=== PATIENT | female | born 1980 ===

== ENCOUNTER 2017-04-09 01:42 | Inpatient (IN) ==
[2017-04-09] MEDS: LACTATED RINGERS 1,000 ML IV SCH ×4 (02:20→22:40)
[2017-04-09] MEDS ORDERED: FAMOTIDINE 20 MG/2 ML VIAL IV ONE (02:45)
[2017-04-09] MEDS ORDERED: CITRIC ACID/SODIUM CITRATE 30 ML UDCUP PO ONE (02:45)
[2017-04-09 04:04] LABS: Basophils % 0.2 % (0.0-0.8); Eosinophils % 0.7 % (0.00-10.9); Hematocrit 30.7 VOL% (35.7-47.0); Hemoglobin 9.9 GM/DL (12.0-16.0); Immature Granulocytes % 0.5 %; Immature Granulocytes Absolute 0.02 #; Lymphocytes # 0.8 10*3/uL (1.4-4.0); Lymphocytes % 18.7 % (21.3-54.2); Mean Corpuscular HGB Conc 32.2 GM/DL (32-36); Mean Corpuscular Hemoglobin 26 PG (27-34); Mean Corpuscular Volume 79.9 FL (87-102); Mean Platelet Volume 13.2 FL (9.6-12.0); Monocytes # 0.3 10*3/uL (0.11-0.8); Monocytes % 6.3 % (1.7-12.7); Neutrophils % 73.6 % (38.7-73.9); Platelet Count 113 T/CUMM (130-400); Red Blood Count 3.84 MC/CUMM (3.8-5.5); Red Cell Distribution Width 15.6 % (9.3-17.3); White Blood Count 4.1 T/CUMM (4-12)
[2017-04-09 04:36] LABS: Albumin 2.2 G/DL (3.4-5.0); Bilirubin,Total 0.5 MG/DL (0.2-1.0); Calcium 7.8 MG/DL (8.5-10.1); Potassium 3.9 MMOL/L (3.5-5.1); Total Protein 6.1 G/DL (6.4-8.3)
[2017-04-09] MEDS ORDERED: DEXTROSE 5% LACTATED RINGERS 1,000 ML IV SCH (05:00)
[2017-04-09] MEDS ORDERED: MEPERIDINE 25 MG/1 ML VIAL IV ONE (06:45)
[2017-04-09] MEDS ORDERED: ONDANSETRON 4 MG/2 ML VIAL IV ONE (06:45)
[2017-04-09] MEDS ORDERED: OXYTOCIN 10 UNIT/ML VIAL ONE (07:53)
[2017-04-09] MEDS ORDERED: ceFAZolin 2,000 MG in SODIUM CHLORIDE 0.9% 100 ML IV ONE (08:00)
[2017-04-09] MEDS ORDERED: OXYTOCIN/LR 30 UNIT/1,000 ML BAG IV ONE (08:00)
[2017-04-09 08:25] LABS: Apearance,Urine CLEAR (Clear); Bilirubin,Urine Negative (Negative); Blood, Urine Negative (Negative); Glucose,Urine (UA) Negative (Negative); Ketones,Urine 5 mg/dL (Negative); Mucus,Urine Occasional /LPF (Occasional); Nitrite,Urine Negative (Negative); Protein,Urine Negative; RBC,Urine 2 /HPF (0-4); Squamous Epithelial Cell,Urine Occasional /HPF (0-10); Urine Color Amber (Yellow); Urine Specific Gravity 1.026 (1.001-1.035); WBC,Urine 1 /HPF (0-6)
--- NOTE | 2017-04-09 11:14 | OB/GYN History & Physical ---
History of Present Illness Chief complaint: 39 weeks and 2 days, early labor, previous C6 History of present illness: Ms. Cabrera is a 37 year old female 37-year-old multiparous patient who presents for repeat section. Patient has a previous history of help syndrome but this patient was complicated by late care. We will plan on a repeat section and bilateral tubal ligation. Risks benefits are discussed she is in full agreement. heart tones were well documented in category 1 Home Medications Medication Instructions Recorded Confirmed Type Multivitamin () [ 1 tablet PO DAILY MDD one tab 02/21/16 History Vitamin] Allergies Allergy/AdvReac Type Severity Reaction Status Date / Time No Known Allergies Allergy Verified 02/21/16 22:07 Medical,Surgical,& Family Hx - Medical History Cardio: History of: Hypertension Reproductive: History of: Complication ( deliveries) No history of: Ectopic - Surgical History Reproductive Surgeries: Surgical HX of;: Section (times 3) Patient denies;: Hysterectomy, Tubal Ligation - Family History Family History: Reports;: Family Diabetes (mgm, pgm), Family Heart Disease (mgm) , Family Hypertension (MOTHER), Family Psychiatric Problems (brothers schizophrenia), Family Stroke (MGM) Denies;: Family Anesthesia Reaction, Family Cancer, Family Hematology, Additional Family History - Social History Smoking Status: Never smoker Frequency of Alcohol Use: None Type of Drug Use: None 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[employer]ER - Constitutional Vitals: Vital Signs Temp Pulse Resp BP 04/09/17 08:00 97.1 F L 57 L 19 150/57 04/09/17 04:00 97 F L 60 16 120/74 General appearance: no acute distress, mild distress - Antepartum / Post Antepartum Exam Cervix - Dilatation: 1-2 cm - Head Head exam: Present: normal inspection - Eye Eye exam: Present: EOMI Pupils: Present: BHAVANA - ENT ENT exam: Present: normal exam - Neck Neck exam: Present: normal inspection - Respiratory Respiratory exam: Present: clear to auscultation bilaterally - Breast Breasts: as per HPI Menstruation: as per HPI - Cardiovascular Cardiovascular exam: Present: regular rate and rhythm - GI/Abdominal GI/Abdominal exam: Present: normal bowel sounds, other ( heart tones, well- healed vertical scar, palpable contraction) - Extremities Exam Extremities exam: Present: normal inspection - Back Exam Back exam: Present: normal inspection - Neurological Exam Neurological exam: Present: alert, oriented X3 - Psychiatric Psychiatric exam: Present: normal affect - Skin Skin exam: Present: normal color Assessment and Plan (1) Previous section Status: Acute Assessment and plan: Repeat section and elective sterilization, pre-risks and benefits were thoroughly discussed she is in full agreement Current Visit: No Results - Labs CBC & BMP: 04/09/17 03:30 04/09/17 03:30
[2017-04-09 11:53] LABS: Cord Arterial Blood HCO3 18.4 MMOL/L; Cord Venous Blood HCO3 19.6 MMOL/L; Cord Venous Blood PO2 28.6 MMHG
--- NOTE | 2017-04-09 12:07 | Anesthesia Post-Op ---
Anesthesia Post OP - Post Ansesthetic Evaluation Patient seen in post op: Yes Resp: within normal limits CV: within normal limits Mental: within normal limits Temp: within normal limits [id number]: within normal limits Nausea and Vomiting: within normal limits Pain: within normal limits
[2017-04-09] MEDS ORDERED: fentaNYL 100 MCG/2 ML VIAL ONE (12:08)
[2017-04-09] MEDS ORDERED: MORPHINE 10 MG/10 ML VIAL ONE (12:09)
--- NOTE | 2017-04-09 12:21 | Operative Note ---
Date of procedure: 04/09/17 Procedure: Preoperative diagnosis: 39 weeks and 2 days, repeat section, elective sterilization Postoperative diagnosis: Same Anesthesia:[] Regional anesthesia Estimated blood loss: [] 300 cc Surgeon: Dr. Martinez Findings: [] Multiple pelvic adhesions, the fascia was disrupted before entering the abdominal cavity, delivery time was 1127, Apgars was 9 at 1 minute 9 at 5 minutes, weight was 7 pounds and 9 ounces Complications: None Procedure: Low transverse section and bilateral tubal ligation The patient was taken to the operating suite heart tones were obtained prior to and after regional anesthesia was obtained. She was placed in supine position her abdomen was prepped and draped in usual manner for major abdominal surgery. Through an abdominal incision the skin, subcutaneous, fascial layer the fascial layer was already opened prior to making an incision. There was no protrusion of bowel or omentum through this opening. And peritoneal the abdomen was entered. The bladder flap was created and a low transverse incision was made.. Fluid was clear and normal amount X, Apgars, the placenta was delivered and sent to lab for further evaluation. Injected with intrauterine Pitocin. The first layer of the uterus was closed with #1 Vicryl in a continuous locking manner. Close to imbricate the first layer with #1 Vicryl. The peritoneum was approximated with #2-0 Vicryl.[Fallopian tubes were grasped with a Archie clamp on the right side is mesosalpinx was perforated proximal distal end of the tube was ligated segment in between was excised. There was an absent right tube and ovary on the left side. All the last sponges and instruments were accounted for -2.) #2-0 Vicryl. Fascia was approximated with #0-0 Maxon.. The skin was approximated with ton. She tolerated procedure well and was taken to recovery room in stable condition. Surgeon / Physician: Katty Martinez Results - Labs CBC & BMP: 04/09/17 03:30 04/09/17 03:30 Discharge Plan - Discharge Medications No Action Multivitamin () [ Vitamin] 1 tablet PO DAILY MDD one tab - Follow Up or Referral - Forms/Instructions
[2017-04-09] MEDS ORDERED: SIMETHICONE CHEW 80 MG TABLET PO PRN (12:22)
[2017-04-09] MEDS ORDERED: OXYTOCIN/LR 20 UNIT/1,000 ML BAG IV ONE (12:22)
[2017-04-09] MEDS ORDERED: ACETAMINOPHEN 325 MG TABLET PO PRN (12:22)
[2017-04-09] MEDS ORDERED: ONDANSETRON 4 MG/2 ML VIAL IV PRN (12:22)
[2017-04-09] MEDS ORDERED: RHO(D) IMMUNE GLOBULIN 300 MCG SYRINGE IM ONE (12:22)
[2017-04-09] MEDS ORDERED: MAGNESIUM HYDROXIDE SUSP 30 ML UDCUP PO PRN (12:22)
[2017-04-09] MEDS ORDERED: HYDROmorphone 2 MG/1 ML VIAL ONE (13:35)
[2017-04-09] MEDS: HYDROmorphone 2 MG/1 ML VIAL IV PRN ×2 (13:40→16:05)
[2017-04-09 20:14] LABS: Eosinophils % 0.1 % (0.00-10.9); Hematocrit 27.8 VOL% (35.7-47.0); Hemoglobin 8.9 GM/DL (12.0-16.0); Immature Granulocytes % 0.5 %; Immature Granulocytes Absolute 0.04 #; Lymphocytes # 0.5 10*3/uL (1.4-4.0); Lymphocytes % 7.1 % (21.3-54.2); Mean Corpuscular Hemoglobin 26 PG (27-34); Mean Corpuscular Volume 81.8 FL (87-102); Mean Platelet Volume 13.4 FL (9.6-12.0); Monocytes # 0.2 10*3/uL (0.11-0.8); Monocytes % 3.3 % (1.7-12.7); Neutrophils # 6.5 10*3/uL (1.4-7.4); Platelet Count 103 T/CUMM (130-400); Red Cell Distribution Width 15.4 % (9.3-17.3); White Blood Count 7.3 T/CUMM (4-12)
[2017-04-09] MEDS: FERROUS SULFATE 325 MG TABLET PO SCH (21:12)
[2017-04-09] MEDS: DOCUSATE SODIUM 100 MG CAPSULE PO SCH (21:12)
[2017-04-09] MEDS ORDERED: PROMETHAZINE 25 MG/1 ML VIAL IM PRN (21:15)
[2017-04-10 06:10] LABS: Basophils % 0.2 % (0.0-0.8); Hematocrit 24.2 VOL% (35.7-47.0); Immature Granulocytes % 0.4 %; Immature Granulocytes Absolute 0.02 #; Lymphocytes # 0.9 10*3/uL (1.4-4.0); Mean Corpuscular HGB Conc 31.8 GM/DL (32-36); Mean Corpuscular Hemoglobin 26 PG (27-34); Mean Corpuscular Volume 80.4 FL (87-102); Mean Platelet Volume 13.3 FL (9.6-12.0); Monocytes # 0.4 10*3/uL (0.11-0.8); Monocytes % 7.7 % (1.7-12.7); Neutrophils # 4.3 10*3/uL (1.4-7.4); Neutrophils % 75.7 % (38.7-73.9); Red Blood Count 3.01 MC/CUMM (3.8-5.5); Red Cell Distribution Width 15.4 % (9.3-17.3); White Blood Count 5.6 T/CUMM (4-12)
[2017-04-10] MEDS: LACTATED RINGERS 1,000 ML IV SCH (06:18)
[2017-04-10 06:23] LABS: Hemoglobin 7.7 GM/DL (12.0-16.0); Platelet Count 98 T/CUMM (130-400)
[2017-04-10] MEDS ORDERED: SODIUM CHLORIDE 0.9% 250 ML IV PRN ×2 (06:37→14:56)
[2017-04-10 06:38] LABS: Hypochromasia 1+
[2017-04-10] MEDS: DOCUSATE SODIUM 100 MG CAPSULE PO SCH ×2 (08:58→21:03)
[2017-04-10] MEDS: FERROUS SULFATE 325 MG TABLET PO SCH ×2 (08:58→21:03)
[2017-04-10] MEDS: MULTIVITAMIN (PRENATAL) TABLET PO SCH (12:51)
[2017-04-10] MEDS: IBUPROFEN 800 MG TABLET PO PRN ×2 (14:38→23:15)
--- NOTE | 2017-04-10 14:56 | OB/GYN Progress Note ---
Assessment and Plan (1) Previous section Status: Acute Current Visit: Yes (2) Status post repeat low transverse section Status: Acute Assessment and plan: Initiate routine postop orders. 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 Bonding well with infant. Exam CALL OR CONTACT CENTRE TEAM LEADER - Constitutional Vitals: Vital Signs Temp Pulse Pulse Resp BP BP Pulse Ox 04/10/17 13:52 97.7 F 71 18 112/72 99 04/10/17 12:09 97.9 F 74 20 116/74 98 04/10/17 12:00 97.9 F 74 20 116/74 04/10/17 11:09 97.8 F 75 18 120/71 98 04/10/17 10:39 97.9 F 77 18 128/77 98 04/10/17 10:34 97.8 F 73 18 118/75 98 04/10/17 10:29 97.8 F 73 18 114/60 98 04/10/17 10:22 97.8 F 74 18 125/79 97 04/10/17 09:33 97.8 F 73 18 113/67 98 04/10/17 08:33 97.9 F 71 18 111/61 98 04/10/17 08:03 97.8 F 71 18 110/62 98 04/10/17 07:58 97.7 F 71 18 114/65 98 04/10/17 07:53 97.8 F 72 18 112/68 98 04/10/17 07:47 97.8 F 71 18 106/58 98 04/10/17 07:27 98 F 72 18 118/54 04/10/17 04:00 98.2 F 76 18 88/51 04/10/17 00:00 98.5 F 61 18 116/59 04/09/17 22:00 18 04/09/17 20:00 97.6 F 73 20 104/61 04/09/17 18:20 71 20 121/65 04/09/17 17:20 61 20 120/67 04/09/17 16:20 64 18 112/66 04/09/17 15:50 63 20 119/68 04/09/17 15:20 97.5 F L 61 20 117/67 Pulse Ox 04/10/17 13:52 04/10/17 12:09 04/10/17 12:00 98 04/10/17 11:09 04/10/17 10:39 04/10/17 10:34 04/10/17 10:29 04/10/17 10:22 04/10/17 09:33 04/10/17 08:33 04/10/17 08:03 04/10/17 07:58 04/10/17 07:53 04/10/17 07:47 04/10/17 07:27 97 04/10/17 04:00 96 04/10/17 00:00 96 04/09/17 22:00 04/09/17 20:00 98 04/09/17 18:20 99 04/09/17 17:20 99 04/09/17 16:20 99 04/09/17 15:50 99 04/09/17 15:20 99 General appearance: no acute distress - Antepartum / Post Post Exam Breast: bilateral: normal Abdomen obstetrics: Present: bowel sounds normal Vagina: Present: normal moisture, discharge (Light lochia rubra) Uterus exam: Present: enlarged Anus/Rectum: Present: normal perianal skin - Gyencological / Post Surgical Post Surgical Exam Lungs: bilateral: normal Chest: Normal S1, Normal S2 Extremities CALL OR CONTACT CENTRE TEAM LEADER: Present: edema Abdomen obstetrics progress note: Present: normal appearance Incision OB: Present: intact - Head Head exam: Present: normal inspection - Respiratory Respiratory exam: Present: clear to auscultation bilaterally - Cardiovascular Cardiovascular exam: Present: regular rate and rhythm - GI/Abdominal GI/Abdominal exam: Present: normal bowel sounds, soft - Extremities Exam Extremities exam: Present: normal inspection - Neurological Exam Neurological exam: Present: alert, oriented X3 - Psychiatric Psychiatric exam: Present: normal affect, normal mood - Skin Skin exam: Present: normal color, warm Results - Labs CBC & BMP: 04/10/17 05:20 04/09/17 03:30
[2017-04-10 17:31] LABS: Hematocrit 32.2 VOL% (35.7-47.0); Hemoglobin 10.7 GM/DL (12.0-16.0)
[2017-04-11 07:49] VITALS: BP 136/78
[2017-04-11] MEDS: MULTIVITAMIN (PRENATAL) TABLET PO SCH (08:18)
[2017-04-11] MEDS: FERROUS SULFATE 325 MG TABLET PO SCH (08:18)
[2017-04-11] MEDS: DOCUSATE SODIUM 100 MG CAPSULE PO SCH (08:18)
--- NOTE | 2017-04-11 10:09 | Discharge Summary ---
Hospital Course - Hospital Course Hospital Course: Ms. Cabrera presented to the labor department for elective repeat section and elective bilateral sterilization due to term and the desire to have no more children. She subsequently delivered via a viable with no complications. She has followed a normal postoperative course and she has done well. The patient did receive 2 units of packed RBCs for low blood counts. She has done well since then. She denies any headaches shortness of breath or dizziness. She is bonding well with her . Her incision is well approximated without signs of infection. Her bleeding is minimal with no odor. She is voiding without difficulty. Her bowel sounds are positive she has had a normal bowel movement. She will be discharged home prescriptions for pain and a follow-up appointment in our office. Diagnosis - Discharge Diagnosis (1) Previous section Status: Acute (2) Status post repeat low transverse section Status: Acute Specialty Discharge - Follow Up or Referrals Follow up with: Katty Martinez MD [Physician] - 2 Weeks Discharge Plan - Discharge Data Disposition: Disch To Home/Self Care Condition at Discharge: Stable Discharge Diet: advance to your usual diet, regular diet Activity: increase activity as tolerated, no lifting, no prolonged standing Hygiene: may shower Weight Bearing at Discharge: partial weight bearing Driving: not until seen by doctor Contact your physician if you experience:: fever over 101, pain uncontrolled by pain medications - Discharge Medications New HYDROcodone/ACETAMIN 5-325 [[place] 5-325] 2 tablet PO Q6H PRN #30 tablet PRN Reason: Pain Severe (8-10) Ibuprofen Tab [Motrin Tab] 800 mg PO Q8H PRN #30 tablet PRN Reason: Pain Severe (8-10) Ferrous Sulfate Tab [Feosol Original Tab] 325 mg PO BID #60 tablet No Action Multivitamin () [ Vitamin] 1 tablet PO DAILY MDD one tab - Follow Up or Referral - Forms/Instructions Instructions: Section (DC), Perineal Care (DC), Bleeding (DC) Exam - Constitutional Vitals: Period Temp Pulse Resp BP Sys/Gan Pulse Ox Last 24 Hr 96.6 F-98.4 F 62-77 18-20 101-139/55-83 96-100 General appearance: no acute distress - Respiratory Respiratory exam: Present: clear to auscultation bilaterally - Cardiovascular Cardiovascular exam: Present: regular rate and rhythm - GI/Abdominal GI/Abdominal exam: Present: normal bowel sounds, soft - Extremities Exam Extremities exam: Present: normal inspection - Back Exam Back exam: Present: normal inspection - Neurological Exam Neurological exam: Present: alert, oriented X3 - Psychiatric Psychiatric exam: Present: normal affect, normal mood - Skin Skin exam: Present: normal color, warm Discharge Results Labs on day of discharge: Labs from last 24 hours 04/10/17 04/10/17 04/10/17 Unknown 17:25 06:37 Hgb 10.7 L D Hct 32.2 L Blood Type Cancelled Antibody Screen Cancelled Crossmatch See Detail See Detail Blood Bank Comment Cancelled DS: Provider Date of admission: 04/09/17 02:45 Primary care physician: Sarita Viera MD Attending physician on admission: aKtty Martinez MD Consults: 04/09/17 02:45 Consult to Anesthesiology [CONS] Routine Consulting Provider: Reason for Anesthesiology: Pre-op Clearance 04/09/17 12:22 Consult to Clinical Nursing Director [CONS] Routine Consult Clinical Nursing Director: Breast Feeding Discharging clinician: Lyric Mercer CNM Expected date of discharge: 04/11/17
--- NOTE | 2017-04-11 11:16 | Pathology Report from [facility] ---
[facility] – [place] ACCESSION # : [id number] PATIENT NAME : Moose Cabrera ORDERING DR : Payal Islas MD CLINICAL HX: IUP @ 39 wks, repeat C/S, desires sterilization POST-OP DX: Same SPECIMEN INFO: #1 RT fallopian tube segment #2 Placenta GROSS DESCRIPTION: Received fresh in two parts labeled:#1 MOOSE CABRERA & R FALLOPIAN SEG is a 1.7 x 0.5 cm coello unfimbriated fallopian tube segment. Planning Consultant sections are submitted in cassette #1.#2 MOOSE CABRERA & PLACENTA consists of a 525 gm placenta measuring 18.2 x 18.3 x 2.8 cm. The membranes are pink coello and somewhat opaque. The umbilical cord is pericentrally inserted, contains three vessels and is 18.6 cm. The surface is blue mike with multiple areas of subchorionic fibrin present measuring up to 3.8 cm and is partially circumarginate. The maternal surface is hemorrhagic with markedly disrupted cotyledons and multiple areas of fibrin and calcification noted. No gross abnormalities on sectioning. Sections submitted 2A - membranes and cord, 2B- and maternal surfaces. DIAGNOSIS FOR MOOSE CABRERA: #1 Completely transected segment of fallopian tube , right.#2 PLACENTA, MEMBRANES, UMBILICAL CORD: Focal placental infarction with dystrophic calcification, mild intervillous blood. Tri-vessel umbilical cord, pericentrally inserted. Membranes with focal chronic inflammation and attached blood. COLLECTED DATE: 04/10/2017 [facility] REPORT DATE: 04/11/2017 ELECTRONICALLY SIGNED BY: Yury Coronado M.D. 04/11/2017 - 10:16:54 [facility] SYSTEMJacquelyn
== END 2017-04-11 12:20 | disposition home or self-care (01) | DRG 766 ==
LOC: N.LDOUT 01:42 → N.LD 01:43 → N.OB 15:33
PROVIDERS: ADMIT Obstetrics & Gynecology; ATTEND Obstetrics & Gynecology

== ENCOUNTER 2018-03-21 21:35 | Observation (INO) ==
[2018-03-21] MEDS ORDERED: methylPREDNISolone SOD SUC 125 MG/2 ML VIAL IV STA (21:54)
[2018-03-21] MEDS ORDERED: ONDANSETRON 4 MG/2 ML VIAL IV STA (21:54)
[2018-03-21] MEDS ORDERED: LEVOFLOXACIN INJ 750 MG in PREMIX 1 EACH IV STA (21:54)
[2018-03-21] MEDS ORDERED: METOPROLOL TARTRATE 5 MG/5 ML VIAL IV STA (21:54)
[2018-03-21 22:13] LABS: Basophils % 0.1 % (0.0-0.8); Eosinophils % 0.2 % (0.00-10.9); Hematocrit 31.7 VOL% (35.7-47.0); Hemoglobin 9.7 GM/DL (12.0-16.0); Immature Granulocytes % 0.5 %; Immature Granulocytes Absolute 0.05 #; Lymphocytes # 0.9 10*3/uL (1.4-4.0); Lymphocytes % 9.1 % (21.3-54.2); Mean Corpuscular HGB Conc 30.6 GM/DL (32-36); Mean Corpuscular Hemoglobin 23 PG (27-34); Mean Corpuscular Volume 74.1 FL (87-102); Mean Platelet Volume 10.3 FL (9.6-12.0); Monocytes # 0.6 10*3/uL (0.11-0.8); Monocytes % 6.4 % (1.7-12.7); Neutrophils # 7.8 10*3/uL (1.4-7.4); Neutrophils % 83.7 % (38.7-73.9); Platelet Count 349 T/CUMM (130-400); Red Blood Count 4.28 MC/CUMM (3.8-5.5); Red Cell Distribution Width 16.8 % (9.3-17.3); White Blood Count 9.3 T/CUMM (4-12)
[2018-03-21 22:34] LABS: Alanine Aminotransferase 15 U/L (13-56); Albumin 2.8 G/DL (3.4-5.0); Alkaline Phosphatase 108 U/L (45-117); Aspartate Amino Transferase 12 U/L (0-37); Blood Urea Nitrogen 10 MG/DL (7-18); Calcium 7.7 MG/DL (8.5-10.1); Glucose 95 MG/DL (74-106); Osmolality,Calculated 277.4 MOS/KG (273-304); Potassium 3.5 MMOL/L (3.5-5.1); Sodium 140 MMOL/L (136-145); Total Protein 8.1 G/DL (6.4-8.3); Troponin I Only 0.456 NG/ML (0.00-0.045)
[2018-03-22] MEDS ORDERED: MORPHINE 4 MG/1 ML VIAL IV PRN (02:51)
[2018-03-22] MEDS ORDERED: ACETAMINOPHEN 325 MG TABLET PO PRN (02:51)
[2018-03-22 05:59] LABS: Hematocrit 30.7 VOL% (35.7-47.0); Hemoglobin 9.5 GM/DL (12.0-16.0); Immature Granulocytes % 0.4 %; Immature Granulocytes Absolute 0.03 #; Lymphocytes # 0.4 10*3/uL (1.4-4.0); Lymphocytes % 6.3 % (21.3-54.2); Mean Corpuscular HGB Conc 30.9 GM/DL (32-36); Mean Corpuscular Hemoglobin 23 PG (27-34); Mean Corpuscular Volume 72.6 FL (87-102); Mean Platelet Volume 11.4 FL (9.6-12.0); Monocytes # 0.1 10*3/uL (0.11-0.8); Monocytes % 1.5 % (1.7-12.7); Neutrophils # 6.2 10*3/uL (1.4-7.4); Neutrophils % 91.8 % (38.7-73.9); Platelet Count 322 T/CUMM (130-400); Red Blood Count 4.23 MC/CUMM (3.8-5.5); Red Cell Distribution Width 16.7 % (9.3-17.3); White Blood Count 6.8 T/CUMM (4-12)
[2018-03-22 06:35] LABS: Hypochromasia 1+; Lymphocytes 9 % (20-55); Ovalocytes Slight; Platelet Estimate Adequate; Segmented Neutrophils 91 % (50-85); Total Cells Counted 100
[2018-03-22 06:37] LABS: Calcium 8.3 MG/DL (8.5-10.1); Osmolality,Calculated 278.5 MOS/KG (273-304); Potassium 4.1 MMOL/L (3.5-5.1); Risk Ratio 2.07; Thyroid Stimulating Hormone 0.151 uIU/ml (0.358-3.74)
[2018-03-22] MEDS ORDERED: DILTIAZEM CD 120 MG CAPSULE PO SCH ×2 (09:00→12:00)
[2018-03-22] MEDS ORDERED: LORATADINE 10 MG TABLET PO SCH (09:00)
[2018-03-22] MEDS ORDERED: DILTIAZEM 30 MG TABLET PO SCH (09:00)
[2018-03-22] MEDS ORDERED: ASPIRIN EC 81 MG TABLET PO SCH (09:30)
[2018-03-22] MEDS ORDERED: ALBUTEROL/IPRATROPIUM 3 ML NEB RESP TX PRN (09:44)
[2018-03-22 10:09] LABS: % Iron Saturation 3.8 % (18-50)
[2018-03-22 10:42] LABS: INR 1.1; PT Patient Result 11.3 SECS
[2018-03-22 11:10] LABS: Troponin I Only 0.188 NG/ML (0.00-0.045)
[2018-03-22 18:08] VITALS: BP 99/59
== END 2018-03-22 18:12 | disposition home or self-care (01) ==
LOC: EDUNIT# → EDBD → N.ED 21:35 → N.EDINP 21:35 → N.TELES 03-22 02:20
PROVIDERS: ADMIT Internal Medicine Infectious Disease; ATTEND Internal Medicine Infectious Disease